=== PATIENT | female | born 1990 | race Caucasian/White ===

== ENCOUNTER 2017-01-26 20:03 | Inpatient (IN) | payer BC ==
[2017-01-26] VITALS (10 sets, daily range): BP systolic 135–152; BP diastolic 67–75; PULSE 79–85; RESP 18; TEMP 98.1
[~2017-01-26] VITALS: Ht 162.6 cm; Wt 109.0 kg
[2017-01-26] MEDS ORDERED: LACTATED RINGER'S 1000 ML INJ 1,000 ML IV PRN (20:43)
[2017-01-26] MEDS ORDERED: LIDOCAINE HCL 1% 50 ML VIAL INFIL PRN (20:45)
[2017-01-26] MEDS ORDERED: SODIUM CHLORID 0.9% 500 ML INJ 500 ML IV PRN (20:45)
[2017-01-26] MEDS ORDERED: ONDANSETRON HCL 4 MG/2 ML VIAL IV PUSH PRN (20:45)
[2017-01-26] MEDS ORDERED: LIDOCAINE HCL 1% 50 ML VIAL I-DERMAL PRN (20:45)
[2017-01-26] MEDS ORDERED: CITRIC ACID-SODIUM CITRATE LIQ 30 ML UDC PO SCH (20:45)
[2017-01-26] MEDS ORDERED: MINERAL OIL 10 ML VIAL TOPICAL PRN (20:45)
[2017-01-26] MEDS ORDERED: OXYTOCIN 30 UNITS-500ML PREMIX 500 ML IV ONE (20:45)
[2017-01-26] MEDS ORDERED: OXYTOCIN 30 UNITS-500ML PREMIX 500 ML IV SCH (21:00)
[2017-01-26] MEDS ORDERED: SODIUM CHLOR 0.9% 1000 ML INJ 1,000 ML IV PRN (21:03)
[2017-01-26] MEDS ORDERED: ZANT150T2 PO (21:17)
[2017-01-26] MEDS ORDERED: TUMS500C CHEW (21:17)
[2017-01-26] MEDS: LACTATED RINGER'S 1000 ML INJ 1,000 ML IV SCH (21:18)
[2017-01-26 21:42] LABS: AUTOMATED NEUTROPHIL # 10.5 TH/MM3 (1.8-7.7); BASOPHIL % 0.2 % (0.0-2.0); EOSINOPHIL # 0.1 TH/MM3 (0-0.4); EOSINOPHIL % 0.7 % (0.0-4.0); HEMATOCRIT 34.2 % (35.0-46.0); HEMO FLAGS DIFF FINAL; LYMPH % 14.7 % (9.0-44.0); MEAN CORPUSCULAR HEMOGLOBIN 25.4 PG (27.0-34.0); MONO % 6.1 % (0.0-8.0); NEUT % 78.3 % (16.0-70.0); PLATELET COUNT 192 TH/MM3 (150-450); RED BLOOD COUNT 4.44 MIL/MM3 (4.00-5.30); RED CELL DISTRIBUTION WIDTH 15.7 % (11.6-17.2); WHITE BLOOD COUNT 13.4 TH/MM3 (4.0-11.0)
[2017-01-26 21:53] LABS: BACTERIA, URINE FEW /hpf; BLOOD, URINE SMALL (NEG); CALCIUM OXALATE CRYSTALS,URINE MOD /hpf; COMMENT (UR) CULT NOT INDICATED; CULTURE IF INDICATED CULT NOT INDICATED; GLUCOSE,URINE NEG (NEG); KETONE, URINE 40 mg/dL (NEG); MUCUS URINE FEW /lpf (OCC); NITRITE,URINE NEG (NEG); PH, URINE 5.5 (5.0-8.5); SQUAMOUS EPITHELIAL CELL URINE 2 /hpf (0-5); URINE COLOR YELLOW (YELLW/STRAW)
[2017-01-27] VITALS (136 sets, daily range): BP systolic 82–141; BP diastolic 36–105; PULSE 66–128; RESP 16–18; TEMP 97.7–99
[2017-01-27] MEDS ORDERED: fentaNYL 2MCG-BUPIV 0.125% INJ 100 ML ONE (01:27)
[2017-01-27] MEDS ORDERED: ePHEDrine/NS 25 MG/5 ML SYR ONE (01:27)
[2017-01-27] MEDS: ePHEDrine/NS 25 MG/5 ML SYR IV PUSH PRN ×4 (01:56→03:34)
[2017-01-27] MEDS ORDERED: fentaNYL 2MCG-BUPIV 0.125% 100 ML EPIDURAL SCH (02:00)
[2017-01-27] MEDS ORDERED: DO NOT ADMINISTER ANTICOAGULANTS PRN (02:00)
[2017-01-27] MEDS ORDERED: NO SYSTEM NARCOTICS PRN (02:00)
[2017-01-27] MEDS: LACTATED RINGER'S 1000 ML INJ 1,000 ML IV SCH ×2 (02:29→03:50)
--- NOTE | 2017-01-27 08:17 | MH ---
cc: THELMA HUTCHISON DATE OF ADMISSION: 01/26/2017 DATE OF 1990 INDICATIONS FOR ADMISSION 39-1/2 week intrauterine . Desirous of induction for pressure and pelvic pain. HISTORY OF PRESENT CONDITION The patient is a 26-year-old white female 2, para 1-0-0-1, with LMP of 04/26/2016 and EDC of 01/31/2017, currently at 39 and 2/7 weeks. She has proven to 7 pounds, 1 ounce. She delivered at term with significant preeclampsia with her first child but she did deliver naturally. Her current Bustos's score is 7 and her estimated weight of her baby is 7-1/2. She is showing no signs of preeclampsia, hypertensive disease, gestational diabetes or labor. Her care began with [place] [employer] at 7-1/2 weeks and has been unremarkable throughout. PAST MEDICAL HISTORY 1. She does have a history of mild depression and initially took Zoloft but stopped. 2. She does have a distant history of grand mal seizures in childhood but none as an adult. 3. She has some GERD did take Zantac intermittently. She has no other chronic or systemic illnesses, does not smoke, drink or use illicit drugs. LABORATORY DATA Her blood type is O-negative. She did receive RhoGAM. Her initial hemoglobin was 10.7, her Pap was normal. She is immune to chicken pox but not immune to [place] measles. Cultures were normal. Serology was all normal. She declined genetic testing. Her one-hour Glucola was 104. Her drug screens were consistently reassuring and her Group B Strep was negative. PHYSICAL EXAMINATION GENERAL: She is mildly overweight. VITAL SIGNS: Her weight today is 243, her blood pressure is 122/74. She had 1+ protein. NECK: She had no thyroid enlargement. LUNGS: Clear. HEART: Regular. ABDOMEN: Fundus was term. Infant is in cephalic position. Estimated weight is 7-1/2. PELVIC EXAM: Cervix to her left is 2-3 cm, 50% and soft and the baby is -2. EXTREMITIES: Minimal edema. Normal deep tendon reflexes. IMPRESSION Term intrauterine in a multiparous patient who desires a social induction, history of preeclampsia at this time with a prior . Bustos's score is favorable. She is proven to 7-1/2 pounds. PLAN Proceed with Cervidil and then rupture of membranes and augmentation as needed. She may have an epidural as needed. She has been counseled on induction versus spontaneous labor and is comfortable with her decision at this time. Thelma Hutchison MD PPC/SSB /1:16 PM /8:22 AM
--- NOTE | 2017-01-27 08:29 | PD.LABORPN ---
Objective Vital Signs Vital Signs Date Time Temp Pulse Resp B/P (MAP) Pulse Ox O2 Delivery O2 Flow Rate FiO2 01/27/17 07:45 16 01/27/17 07:40 93 01/27/17 07:35 101 01/27/17 07:30 98 01/27/17 07:30 98.5 16 01/27/17 07:30 92 118/55 (76) 01/27/17 07:25 90 01/27/17 07:20 90 01/27/17 07:15 98 104/54 (71) 01/27/17 07:15 16 01/27/17 07:15 94 01/27/17 07:10 93 01/27/17 07:05 86 01/27/17 07:01 92 95/39 (57) 01/27/17 07:00 84 01/27/17 06:45 84 96/52 (67) 01/27/17 06:45 91 01/27/17 06:30 89 96/42 (60) 01/27/17 06:30 82 01/27/17 06:15 83 01/27/17 06:15 96 99/51 (67) 01/27/17 06:08 96 104/46 (65) 01/27/17 06:07 18 01/27/17 06:05 101 01/27/17 06:00 95 01/27/17 05:46 82 118/62 (80) 01/27/17 05:45 93 18 01/27/17 05:31 75 130/66 (87) 01/27/17 05:30 75 01/27/17 05:20 81 01/27/17 05:16 81 138/77 (97) 01/27/17 05:15 94 01/27/17 05:00 74 01/27/17 05:00 83 131/69 (89) 01/27/17 04:59 98.1 01/27/17 04:55 18 01/27/17 04:45 96 01/27/17 04:45 91 111/51 (71) 01/27/17 04:30 82 01/27/17 04:30 88 110/47 (68) 01/27/17 04:20 18 01/27/17 04:15 81 01/27/17 04:15 87 106/51 (69) 01/27/17 04:00 88 01/27/17 04:00 89 105/59 (74) 01/27/17 03:45 82 01/27/17 03:45 91 110/57 (74) 01/27/17 03:43 87 104/44 (64) 01/27/17 03:40 80 01/27/17 03:37 18 01/27/17 03:35 81 01/27/17 03:31 76 96/42 (60) 01/27/17 03:30 74 01/27/17 03:20 83 01/27/17 03:16 73 109/41 (63) 01/27/17 03:15 77 01/27/17 03:12 97.7 18 01/27/17 03:05 81 01/27/17 03:00 89 01/27/17 03:00 87 116/65 (82) 01/27/17 02:55 84 01/27/17 02:51 88 112/63 (79) 01/27/17 02:50 84 01/27/17 02:49 18 01/27/17 02:45 79 98/47 (64) 01/27/17 02:45 84 01/27/17 02:30 81 114/57 (76) 01/27/17 02:30 76 01/27/17 02:29 82 117/56 (76) 01/27/17 02:29 18 01/27/17 02:25 77 01/27/17 02:20 89 01/27/17 02:18 109/53 (71) 01/27/17 02:18 92 01/27/17 02:16 89 01/27/17 02:16 106/52 (70) 01/27/17 02:15 95 01/27/17 02:14 104 106/56 (73) 01/27/17 02:12 128 86/36 (53) 01/27/17 02:10 99 01/27/17 02:08 105 91/64 (73) 01/27/17 02:08 18 01/27/17 02:05 92 01/27/17 02:00 96 106/59 (75) 01/27/17 02:00 93 01/27/17 01:55 88 01/27/17 01:55 97 86/43 (57) 01/27/17 01:51 78 120/64 (82) 01/27/17 01:50 84 01/27/17 01:46 99 125/99 (108) 01/27/17 01:45 92 01/27/17 01:40 99 01/27/17 01:35 86 128/81 (97) 01/27/17 01:35 84 01/27/17 01:31 78 01/27/17 01:31 141/60 (87) 01/27/17 01:24 97.7 01/27/17 01:00 83 138/75 (96) 01/27/17 00:49 18 01/27/17 00:49 77 129/63 (85) 01/27/17 00:31 75 97/50 (66) Objective stretchy 5-6 with 80 % effacement and still high and not well applied proven to 7 + strip category 1 pit at four Weeks Gestation: 39 Gest Age Assessed Date: Jan 27, 2017 Gest Age Assessed Time: 08:27 Pt started active labor?: Yes Active labor start date: Jan 26, 2017 Active labor start time: 22:00 Medical induction of labor?: Yes Medical induction start date: Jan 26, 2017 Medical induction start time: 22:00 Artificial rupture of membrane: Yes Artificial ROM date: Jan 26, 2017 Artifical ROM time: 22:00 Assessment/Plan Assessment and Plan increase pitocin position changes to facilitate decent and rotation anticipate Ivon Mcgowan MD Jan 27, 2017 08:29
[2017-01-27] MEDS ORDERED: OXYTOCIN 30 UNITS-500ML PREMIX 500 ML IV SCH ×2 (08:30→13:30)
--- NOTE | 2017-01-27 13:22 | PD.OB.DELI ---
Weeks gestation: 39 Gest age assessed date: Jan 27, 2017 Gest age assessed time: 08:27 Pt started active labor?: Yes Active labor start date: Jan 26, 2017 Active labor start time: 22:00 Medical induction of labor?: Yes Medical induction start date: Jan 26, 2017 Medical induction start time: 22:00 Artificial rupture of membrane: Yes Artificial ROM date: Jan 26, 2017 Artifical ROM time: 22:00 Anesthesia: Epidural Episiotomy: None Vaginal Delivery: Normal Presentation: Occiput anterior Delayed cord clamping (45 sec): Yes : Male Delivery date: Jan 27, 2017 Delivery time: 13:21 One Minute : 8 Five Minute : 9 Weight: 8 Placenta: Spontaneous delivery Laceration: No lacerations Estimated blood loss: 300 Ivon Ravi MD Jan 27, 2017 13:22
[2017-01-27] MEDS ORDERED: SODIUM CHLORIDE 0.9% FLUSH 10 ML FLUSH IV FLUSH PRN (13:30)
[2017-01-27] MEDS ORDERED: ALUMINUM/MAGNESIUM/SIMETH 30 ML CUP PO PRN (13:30)
[2017-01-27] MEDS ORDERED: ONDANSETRON ODT 4 MG TAB PO PRN (13:30)
[2017-01-27] MEDS ORDERED: ZOLPIDEM TARTRATE 5 MG TAB PO PRN (13:30)
[2017-01-27] MEDS ORDERED: BENZOCAINE 20% TOPICAL SPRAY 60 ML CAN TOPICAL PRN (13:30)
[2017-01-27] MEDS ORDERED: ACETAMINOPHEN 325 MG TAB PO PRN (13:30)
[2017-01-27] MEDS ORDERED: WITCH HAZEL 50%/GLYCERIN 12.5% 40 PAD JAR TOPICAL PRN (13:30)
[2017-01-27] MEDS ORDERED: DOCUSATE SODIUM 50 MG/SENNA 8.6 MG TAB PO PRN (13:30)
[2017-01-27] MEDS: IBUPROFEN 600 MG TAB PO PRN ×2 (15:51→21:42)
[2017-01-27] MEDS ORDERED: DIPHTH/TETANUS/ACEL PERTUSSIS (BOOSTER) 0.5 ML VIAL/PFS IM ONE (16:00)
[2017-01-27] MEDS ORDERED: MEASLES, MUMPS, RUBELLA VACCINE 0.5 ML VIAL SQ ONE (16:00)
[2017-01-27] MEDS ORDERED: SODIUM CHLORIDE 0.9% FLUSH 10 ML FLUSH IV FLUSH SCH (21:00)
[2017-01-28] MEDS: IBUPROFEN 600 MG TAB PO PRN ×2 (03:38→09:54)
--- NOTE | 2017-01-28 07:22 | HHI.OB ---
Subjective Post Day: 1 Remarks s/p FT of healthy male infant Objective Vitals/I&O Vital Signs Date Time Temp Pulse Resp B/P (MAP) Pulse Ox O2 Delivery O2 Flow Rate FiO2 01/27/17 19:35 98.3 81 18 119/73 (88) 01/27/17 16:30 98.1 80 16 122/64 (83) 01/27/17 15:15 16 01/27/17 15:01 73 117/59 (78) 01/27/17 14:43 16 01/27/17 14:31 81 115/60 (78) 01/27/17 14:15 16 01/27/17 14:00 81 132/69 (90) 01/27/17 13:45 18 01/27/17 13:30 89 118/68 (85) 01/27/17 13:30 98.8 16 01/27/17 13:27 87 101/60 (74) 01/27/17 13:18 90 82/61 (68) 01/27/17 12:15 99.0 16 01/27/17 12:10 88 01/27/17 12:05 91 01/27/17 12:00 87 01/27/17 12:00 89 131/67 (88) 01/27/17 11:45 16 01/27/17 11:40 77 01/27/17 11:35 80 01/27/17 11:31 90 130/66 (87) 01/27/17 11:30 87 01/27/17 11:15 16 01/27/17 11:10 97 01/27/17 11:05 97 01/27/17 11:01 87 110/40 (63) 01/27/17 11:00 93 01/27/17 10:35 86 01/27/17 10:31 82 103/44 (63) 01/27/17 10:30 86 01/27/17 10:15 16 01/27/17 10:10 82 01/27/17 10:05 89 01/27/17 10:00 89 100/53 (69) 01/27/17 10:00 94 01/27/17 09:46 88 98/46 (63) 01/27/17 09:45 93 01/27/17 09:45 16 01/27/17 09:40 90 01/27/17 09:35 95 01/27/17 09:31 84 122/58 (79) 01/27/17 09:30 90 01/27/17 09:25 88 01/27/17 09:20 87 01/27/17 09:15 16 01/27/17 09:15 93 124/68 (86) 01/27/17 09:15 94 01/27/17 09:10 92 01/27/17 09:00 86 01/27/17 09:00 89 130/66 (87) 01/27/17 08:55 81 01/27/17 08:50 96 01/27/17 08:45 89 01/27/17 08:45 16 01/27/17 08:45 92 125/58 (80) 01/27/17 08:40 89 01/27/17 08:35 94 01/27/17 08:30 92 01/27/17 08:30 96 117/69 (85) 01/27/17 08:25 89 01/27/17 08:25 88 127/64 (85) 01/27/17 08:20 87 01/27/17 08:15 95 125/53 (77) 01/27/17 08:15 90 01/27/17 08:15 16 01/27/17 08:10 89 01/27/17 08:05 90 01/27/17 08:01 107 122/75 (91) 01/27/17 08:00 85 01/27/17 08:00 16 01/27/17 07:55 96 01/27/17 07:50 90 01/27/17 07:45 16 01/27/17 07:45 66 01/27/17 07:45 92 120/105 (110) 01/27/17 07:40 93 01/27/17 07:35 101 01/27/17 07:30 98 01/27/17 07:30 98.5 16 01/27/17 07:30 92 118/55 (76) 01/27/17 07:25 90 Objective Remarks GENERAL: Well-nourished, well-developed patient. CARDIOVASCULAR: Regular rate and rhythm without murmurs, gallops, or rubs. RESPIRATORY: Breath sounds equal bilaterally. No accessory muscle use. ABDOMEN/GI: Abdomen soft, non-tender. Fundus: Firm, non-tender at umbilicus. GENITOURINARY: Light to moderate bleeding. EXTREMITIES: No cyanosis or edema, non-tender, without signs of DVT. Medications and IVs Current Medications Medications (Trade) Dose Ordered Sig/Noe Route Start Time Stop Time Status Last Admin Lactated Ringer's 1,000 ml @ 125 mls/hr Q8H IV 01/26/17 20:43 01/27/17 03:50 Lactated Ringer's 1,000 ml @ 3,000 mls/hr Q20M PRN IV 01/26/17 20:43 Sodium Chloride 1,000 ml @ 100 mls/hr Q10H PRN IV 01/26/17 21:03 (Xylocaine 1% Inj (50 ml)) 0.1 ml UNSCH X1 PRN I-DERMAL 01/26/17 20:45 01/29/17 20:44 (Bicitra Liq) 30 ml [employer]ING [employer] PO 01/26/17 20:45 01/30/17 20:44 (Xylocaine 1% Inj (50 ml)) 10 ml UNSCH X1 PRN INFIL 01/26/17 20:45 01/28/17 20:44 (Muri-Lube Oil) 10 ml UNSCH PRN TOPICAL 01/26/17 20:45 Fentanyl/ Bupivacaine HCl 100 ml @ 0 mls/hr TITRATE EPIDURAL 01/27/17 02:00 01/27/17 02:29 (NS Flush) 2 ml BID IV FLUSH 01/27/17 21:00 (NS Flush) 2 ml UNSCH PRN IV FLUSH 01/27/17 13:30 (Tylenol) 650 mg Q4H PRN PO 01/27/17 13:30 01/27/17 20:22 (Motrin) 600 mg Q6H PRN PO 01/27/17 13:30 01/28/17 03:38 (Americaine 20% Top Spr) 1 spray Q4H PRN TOPICAL 01/27/17 13:30 (Tucks Pads) 1 applic QID PRN TOPICAL 01/27/17 13:30 (Niecy-Colace) 2 tab Q12H PRN PO 01/27/17 13:30 (Ambien) 5 mg HS PRN PO 01/27/17 13:30 (Mag-Al Plus Susp Liq) 15 ml Q8H PRN PO 01/27/17 13:30 (Zofran Odt) 4 mg Q6H PRN PO 01/27/17 13:30 Assessment/Plan Problem List: (1) (spontaneous vaginal delivery) ICD Codes: O80 - Encounter for full-term uncomplicated delivery Status: Acute Assessment and Plan PPD#1 routine supportive care anticipate d/c to home tmrw Discharge Planning routine Mariann Juárez MD Jan 28, 2017 07:22
[2017-01-28] MEDS ORDERED: IBUP-232 PO (08:40)
--- NOTE | 2017-01-28 08:41 | HHI.DCPOC ---
Discharge Care Plan Diagnosis: (1) (spontaneous vaginal delivery) Your Health Problems Are: Vaginal delivery Report Symptoms to Your Doctor -Temperature above 100.5 degrees -Redness, of incision or excessive or foul smelling drainage -Unusual pain or calf pain -Increased vaginal bleeding -Painful or difficulty urinating -Feelings of extreme sadness or anxiety after 2 weeks Goals to Promote Your Health * To prevent worsening of your condition and complications * To maintain your health at the optimal level Directions to Meet Your Goals Take your medications as prescribed Follow your dietary instruction Follow activity as directed Ensure plenty of rest for recovery Drink fluids for hydration Keep your appointments as scheduled Take your immunizations and boosters as scheduled If your symptoms worsen call your PCP, if no PCP go to Urgent Care Center or Emergency Room Smoking is Dangerous to Your Health. Avoid second hand smoke Call the 24-hour crisis hotline for domestic abuse at Mariann Juárez MD Jan 28, 2017 08:41
[2017-01-28 10:00] VITALS: BP 150/76; PULSE 83; RESP 20; TEMP 97.8
[2017-01-28 10:02] VITALS: BP 148/73; PULSE 73
[2017-01-28 10:34] VITALS: BP 123/62
[2017-01-28 10:35] VITALS: PULSE 76
[2017-01-28] MEDS: LACTATED RINGER'S 1000 ML INJ 1,000 ML IV SCH (12:12)
[2017-01-28 12:43] LABS: BACTERIA, URINE MANY /hpf; BLOOD, URINE MOD (NEG); CALCIUM OXALATE CRYSTALS,URINE MOD /hpf; COMMENT (UR) CULTURE INDICATED; CULTURE IF INDICATED CULTURE INDICATED; GLUCOSE,URINE NEG (NEG); KETONE, URINE NEG (NEG); MUCUS URINE FEW /lpf (OCC); NITRITE,URINE NEG (NEG); PH, URINE 5.5 (5.0-8.5); SQUAMOUS EPITHELIAL CELL URINE <1 /hpf (0-5); URINE COLOR YELLOW (YELLW/STRAW)
[2017-01-28 14:18] LABS: HEMATOCRIT 28.4 % (35.0-46.0); MEAN CORPUSCULAR HEMOGLOBIN 26.7 PG (27.0-34.0); MEAN CORPUSCULAR HGB CONC 34.2 % (32.0-36.0); PLATELET COUNT 150 TH/MM3 (150-450); RED BLOOD COUNT 3.64 MIL/MM3 (4.00-5.30); RED CELL DISTRIBUTION WIDTH 15.8 % (11.6-17.2); REVIEW FLAG FINAL; WHITE BLOOD COUNT 9.7 TH/MM3 (4.0-11.0)
[2017-01-28 14:21] VITALS: BP 119/65; PULSE 79
[2017-01-28 14:34] LABS: ANION GAP 6 MEQ/L (5-15); AST (GOT) 17 U/L (15-37); BICARBONATE 25.6 MEQ/L (21.0-32.0); BLOOD UREA NITROGEN 7 MG/DL (7-18); CHLORIDE 108 MEQ/L (98-107); GLOMERULAR FILTRATION RATE 151 ML/MIN (>89); POTASSIUM 4.4 MEQ/L (3.5-5.1); SODIUM (NA) 140 MEQ/L (136-145)
[2017-01-28 14:36] LABS: ALT (GPT) 15 U/L (10-53); URIC ACID 3.4 MG/DL (2.6-6.0)
[2017-01-28 14:38] LABS: ALKALINE PHOSPHATASE 124 U/L (45-117); TOTAL BILIRUBIN ADULT 0.2 MG/DL (0.2-1.0)
== END 2017-01-28 16:37 | disposition home or self-care (01) | DRG 775 ==
LOC: H2EB 20:03 → H1EA 01-27 16:12
PROVIDERS: ADMIT Obstetrics & Gynecology; ATTEND Obstetrics & Gynecology
PROC: 10E0XZZ Delivery of Products of Conception, External Approach (ICD-10-PCS; principal; 2017-01-26)
PROC: 3E0R3BZ Introduction of Anesthetic Agent into Spinal Canal, Percutaneous Approach (ICD-10-PCS; 2017-01-26)
PROC: 00HU33Z Insertion of Infusion Device into Spinal Canal, Percutaneous Approach (ICD-10-PCS; 2017-01-26)
DX: O80 Encounter for full-term uncomplicated delivery (principal); O99.354 Diseases of the nervous system complicating childbirth; K21.9 Gastro-esophageal reflux disease without esophagitis; O99.62 Diseases of the digestive system complicating childbirth; Z37.0 Single live birth; Z3A.39 39 weeks gestation of pregnancy; G40.409 Other generalized epilepsy and epileptic syndromes, not intractable, without status epilepticus; O99.344 Other mental disorders complicating childbirth; F41.9 Anxiety disorder, unspecified
CPT/HCPCS: 80053; 80307; 81001; 84550; 85025; 85027; 86900; 86901; 87077; 87086; 87186; J2590; J7120